=== PATIENT | female | born 2000 | race Caucasian/White ===

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

== ENCOUNTER 2021-08-18 06:31 | Emergency (ER) | payer MEDICAID, SELFPAY ==
[2021-08-18 06:36] VITALS: BP 133/77; PULSE 110; RESP 20; TEMP 36.4; O2SAT 96
--- NOTE | 2021-08-18 06:47 | ED.GENADUL_ITS ---
Discharge Plan Disposition Patient Disposition: HOME Condition: Stable Discharge Details Clinical Impression: Urticaria Primary Care Provider: Corby Aguilera ED Provider: Suhas Burnett Home Meds and New Rx's Prescriptions: New prednisone 20 mg tablet 60 mg PO DAILY 5 Days Qty: 15 RF: 0 Continued Pulmicort Flexhaler 180 mcg/actuation aerosol powdr breath activated 2 inh Inhalation BID Qty: 1 RF: 2 lamotrigine 150 MG tablet 150 mg PO BID RF: 0 (DME) Space Chamber Plus 1 EACH spacer 1 ea Miscellaneous Q4H PRN Qty: 1 RF: 0 Nexplanon 68 MG implant 68 mg SQ ONCE Qty: 1 RF: 0 albuterol sulfate [ProAir HFA] 90 mcg/actuation HFA aerosol inhaler 2 puff Inhalation Q4H PRN Qty: 2 RF: 3 ipratropium-albuterol 0.5 mg-3 mg(2.5 mg base)/3 mL solution for nebulization 3 ml IH Q6H Qty: 90 RF: 0 No Action quetiapine [Seroquel] 100 mg Tablet 100 mg PO DAILY RF: 0 Discharge Instructions Instructions: Urticaria (ED) Additional Instructions: you can take 25-50mg benadryl every 6 hours as needed for itching, it may make you drowsy follow up with your primary care provider within 1 week if symptoms are not improving return to the emergency department if you feel more ill, have difficulty breathing, fevers or difficulty swallowing liquids Medical Decision Making 21 yo female comes in with a month of intermittent itching rash. She states it was primarily on her legs then moved to the torso and back and now is on the arms. Went to urgent care yesterday but the medicine (reportedly prednisone) was sent to her pharmacy which is a mail delivery pharmacy so she has not had the meds yet. Was not able to sleep due to itching so came here, has not taken benadryl. She denies fevers, dyspnea, gi symptoms, or difficulty swallowing. No new meds or known exposures to new chemicals. She has various sized mildly raised mildly erythematous patches that keiko, are not warm to touch and not tender on her arms, back and chest. No mucous membrane lesions. Presentation consistent with urticaria, no findings to suggest anaphylaxis and no findings to suggest sjs/ten and no symptoms to suggest infectious etiology. Will have her start prn benadryl and daily prednisone, advised to f/u with pcp and return prec autions given Differential Diagnosis Differential Diagnosis: urticaria, dermatitis HPI General Mode of arrival: ambulatory . Date/Time Provider Initiated Documentation: 08/18/21 06:32 . Limitations to Documentation: no limitations . Information obtained by: patient . History of Present Illness 21 year old F presents to the emergency department with the chief complaint of rash, described as moderate, Patient reports no radiation. Patient started experiencing this month(s) (1) and it has been constant. No relieving factors improve symptom(s), No exacerbating factors reported . Patient notes no other symptoms.. Patient did receive the following treatments prior to arrival, none Related Data Home Medications Medication Instructions Recorded Confirmed lamotrigine 150 mg PO BID tab-cap 01/30/16 08/18/21 Space Chamber Plus #1 08/06/16 08/18/21 Nexplanon 68 mg SQ ONCE #1 implant 12/30/17 08/18/21 ipratropium-albuterol 3 ml IH Q6H #90 ml 10/07/18 08/18/21 albuterol sulfate 90 mcg/actuation 2 puff INHALATION Q4H PRN #2 09/27/19 08/18/21 aerosol inhaler inhaler budesonide 180 mcg/actuation 2 inh INHALATION BID #1 each 04/15/20 08/18/21 breath activated powder inhaler prednisone 60 mg PO DAILY 5 Days #15 tab 08/18/21 quetiapine [Seroquel] 100 mg PO DAILY 08/18/21 08/18/21 Previous Rx's Medication Instructions Recorded ipratropium-albuterol 3 ml IH Q6H #90 ml 10/07/18 albuterol sulfate 90 mcg/actuation 2 puff INHALATION Q4H PRN #2 09/27/19 aerosol inhaler inhaler budesonide 180 mcg/actuation 2 inh INHALATION BID #1 each 04/15/20 breath activated powder inhaler prednisone 60 mg PO DAILY 5 Days #15 tab 08/18/21 Allergies Allergy/AdvReac Type Severity Reaction Status Date / Time lurasidone [From Latuda] AdvReac Nausea Unverified 08/18/21 06:47 General Stated Complaint: RashLesion DAISY: 4 Review of Systems All systems reviewed & are unremarkable except as noted in HPI and below Constitutional Constitutional: Denies chills, Denies fever(s) and Denies weakness Cardiovascular Cardiovascular: Denies chest pain and Denies dyspnea Respiratory Respiratory: Denies cough and Denies dyspnea Gastrointestinal Gastrointestinal: Denies abdominal pain, Denies nausea and Denies vomiting Musculoskeletal Musculoskeletal: Denies joint swelling Neurologic Neurologic: Denies weakness PFSH All Active Problems (Updated 08/18/21 @ 06:48 by Suhas Burnett MD) Urticaria (Acute) Presence of subdermal contraceptive implant (Acute 12/31/20) PTSD (post-traumatic stress disorder) (Chronic) Depression (Chronic) Reactive attachment disorder of childhood (Chronic) Anxiety (Acute 03/24/15) PTSD mood disorder followed by Freda Garza Attention deficit hyperactivity disorder, combined type (Acute 12/20/12) Contraception (Acute 12/22/17) Mild persistent asthma (Acute 07/14/15) exacerbations wiht poor response to oral steroids Pediatric body mass index (BMI) of 85th percentile to less than 95th percentile for age (Acute 07/29/17) Routine child health exam (Acute 07/28/15) Medical History (Updated 08/18/21 @ 06:48 by Suhas Burnett MD) ADHD (attention deficit hyperactivity disorder) Anxiety Asthma Mood disorder PTSD (post-traumatic stress disorder) Wears glasses Surgical History Repair, Dental Caries Tonsillectomy and adenoidectomy Family History Mother Mental disorder Father Medical history unknown Social History (Updated 04/15/20 @ 13:07 by Candelaria Chavira RN) Smoking/Tobacco Use Status: Never Smoking risk assessment performed?: Yes Alcohol Intake: never Drug use: Never Substance use type: does not use Household members: caregiver Pets and animals: Yes Pets and animals: dog(s) Do you feel safe at home: Yes Do you feel safe in your relationship?: Yes Exam Const General: no acute distress Orientation: alert HENMT Head: normal to inspection Ears: external ears normal General nose exam: external nose normal Mouth: moist mucous membranes Eyes General: appearance normal, both eyes and all related structures Neck Neck: normal visual inspection Resp Effort & Inspection: normal respiratory effort and able to speak in complete sentences Cardio Rate: regular rate Skin General skin exam: elasticity normal Neuro General: patient alert and patient oriented x3 Extrem General: normal to inspection Psych Mental Status: mental status grossly normal Course Vital Signs Vital signs: Vital Signs Temperature 36.4 C L 08/18/21 06:36 Pulse 110 H 08/18/21 06:36 Respiratory Rate 20 08/18/21 06:36 Blood Pressure 133/77 08/18/21 06:36 Pulse Oximetry 96 08/18/21 06:36 Temperature 36.4 C L 08/18/21 06:36 Temperature Source Skin 08/18/21 06:36 Pulse 110 H 08/18/21 06:36 Respiratory Rate 20 08/18/21 06:36 Respiratory Effort 08/18/21 06:40 Blood Pressure 133/77 08/18/21 06:36 Blood Pressure Position Sitting 08/18/21 06:36 Pulse Oximetry 96 08/18/21 06:36 Oxygen Delivery Method Room Air 08/18/21 06:36 Oxygen Flow Rate 0 08/18/21 06:36 Pain Level 9 08/18/21 06:36
[2021-08-18] MEDS: predniSONE 20 MG TAB 60 MG PO (06:51)
== END 2021-08-18 06:57 | disposition home or self-care (01) ==
PROVIDERS: Emergency Provider Emergency Medicine; PCP Pediatrics
DX: L50.9 Urticaria, unspecified (principal)
CPT/HCPCS: 99283; J7512

== ENCOUNTER 2022-01-09 21:26 | Emergency (ER) | payer MEDICAID, SELFPAY ==
[2022-01-09 21:30] VITALS: BP 155/81; PULSE 102; RESP 18; TEMP 36.9; O2SAT 98
--- NOTE | 2022-01-09 22:16 | ED.GENADUL_ITS ---
Discharge Plan Disposition Patient Disposition: HOME Condition: Stable Discharge Details Clinical Impression: Anxiety Primary Care Provider: None,None ED Provider: Ashley Crowley Home Meds and New Rx's Prescriptions: Continued lamotrigine 150 MG tablet 150 mg PO BID albuterol sulfate [ProAir HFA] 90 mcg/actuation HFA aerosol inhaler 2 puff Inhalation Q4H PRN Qty: 2 3RF Rx Instructions: 2 puffs with spacer every 4hr as needed for cough/wheeze. 1 for school, 1 for home quetiapine [Seroquel] 100 mg Tablet 100 mg PO DAILY No Action Pulmicort Flexhaler 180 mcg/actuation aerosol powdr breath activated 2 inh Inhalation BID Qty: 1 2RF Rx Instructions: 2 PUFFS twice a day (DME) Space Chamber Plus 1 EACH spacer 1 ea Miscellaneous Q4H PRN Qty: 1 Rx Instructions: use with inhaler as directed Nexplanon 68 MG implant 68 mg SQ ONCE Qty: 1 ipratropium-albuterol 0.5 mg-3 mg(2.5 mg base)/3 mL solution for nebulization 3 ml IH Q6H Qty: 90 0RF Discharge Instructions Instructions: Anxiety (ED) Additional Instructions: You were given a clonazepam for anxiety here in the department. Follow up with primary care provider in 3-5 days. Return to ED sooner if any worsening or concerns. Increase oral fluids. Please return to the ER for any thoughts of harming yourself or others. Please take your normal medications as directed. Medical Decision Making At this time due to no suicidality no homicidality no thoughts of harming herself or others there is no emergent psychiatric reason to consult with mental health. We will give a clonazepam and discharge home. Patient does not appear to be under the influence does not have any physical complaints. Medical Records Medical records reviewed: Yes I reviewed the patient's medical records. HPI General Mode of arrival: ambulatory . Date/Time Provider Initiated Documentation: 01/09/22 21:36 . Limitations to Documentation: no limitations . Information obtained by: patient, RN notes reviewed and old records reviewed . HPI Narrative: 21-year-old female presents to the ER with a chief complaint of anxiety after getting into a verbal argument with her parents. Patient was brought in by police. Patient denies any suicidal ideation or homicidal ideation or any other complaints. She does have a past medical history of PTSD mood disorder anxiety asthma ADHD. She denies doing anything to hurt herself. She denies any physical complaints no nausea vomiting diarrhea. She does take Seroquel at bedtime which she did not take. Upon entering room patient has a blanket over her head. She does not appear to be under the influence of any medications or alcohol. Related Data Home Medications Medication Instructions Recorded Confirmed lamotrigine 150 mg tablet 150 mg PO BID 01/30/16 08/18/21 inhalational spacing device (Space ##1 08/06/16 08/18/21 Chamber Plus) etonogestrel 68 mg subdermal 68 mg SQ ONCE #1 implant 12/30/17 01/09/22 implant (Nexplanon) ipratropium 0.5 mg-albuterol 3 mg 3 ml inhalation Q6H #90 mL 10/07/18 01/09/22 (2.5 mg base)/3 mL nebulization soln albuterol sulfate 90 mcg/actuation 2 puff inhalation Q4H PRN ##2 09/27/19 01/09/22 aerosol inhaler (ProAir HFA) budesonide 180 mcg/actuation 2 inh inhalation BID #1 ea 04/15/20 01/09/22 breath activated powder inhaler (Pulmicort Flexhaler) quetiapine 100 mg tablet (Seroquel) 100 mg PO DAILY 08/18/21 01/09/22 Previous Rx's Medication Instructions Recorded ipratropium 0.5 mg-albuterol 3 mg 3 ml inhalation Q6H #90 mL 10/07/18 (2.5 mg base)/3 mL nebulization soln albuterol sulfate 90 mcg/actuation 2 puff inhalation Q4H PRN ##2 09/27/19 aerosol inhaler (ProAir HFA) budesonide 180 mcg/actuation 2 inh inhalation BID #1 ea 04/15/20 breath activated powder inhaler (Pulmicort Flexhaler) Allergies Allergy/AdvReac Type Severity Reaction Status Date / Time lurasidone [From Latuda] AdvReac Nausea Unverified 01/09/22 21:33 General Stated Complaint: Anxiety DAISY: 5 Review of Systems All systems reviewed & are unremarkable except as noted in HPI and below Psychiatric Psychiatric: Reports anxiety, Denies homicidal ideation and Denies suicidal ideation PFSH All Active Problems (Updated 01/09/22 @ 22:24 by Ashley Crowley NP) Presence of subdermal contraceptive implant (Acute 12/31/20) PTSD (post-traumatic stress disorder) (Chronic) Depression (Chronic) Reactive attachment disorder of childhood (Chronic) Anxiety (Acute 03/24/15) PTSD mood disorder followed by Freda Garza Attention deficit hyperactivity disorder, combined type (Acute 12/20/12) Contraception (Acute 12/22/17) Mild persistent asthma (Acute 07/14/15) exacerbations wiht poor response to oral steroids Pediatric body mass index (BMI) of 85th percentile to less than 95th percentile for age (Acute 07/29/17) Routine child health exam (Acute 07/28/15) Medical History ADHD (attention deficit hyperactivity disorder) Anxiety Asthma Mood disorder PTSD (post-traumatic stress disorder) Wears glasses Surgical History Repair, Dental Caries Tonsillectomy and adenoidectomy Family History Mother Mental disorder Father Medical history unknown Social History Smoking/Tobacco Use Status: Never Smoking risk assessment performed?: Yes Alcohol Intake: never Drug use: Never Substance use type: does not use Household members: caregiver Pets and animals: Yes Pets and animals: dog(s) Do you feel safe at home: Yes Do you feel safe in your relationship?: Yes Exam Narrative Exam Narrative: Constitutional: Alert and oriented x3. Appears stated age. Normal body habitus. Head: Normocephalic, no trauma. Eyes: Pupils PERRL, Red reflex noted, EOM's intact. Eyelids symmetrical without lesions, discharge, or swelling. ENT: Bilateral TM's WNL, External ear normal to inspection, no mastoid TTP, swelling, or erythema, Nasal turbinates WNL, no nasal discharge. Normal dentition, Posterior pharynx WNL, no exudate. Chest: RRR, Normal S1, S2, distal pulses intact. Resp: Lungs clear to auscultation bilaterally, no wheezes, rales, or rhonchi. Abdomen: Soft, non-distended, Normoactive bowel sounds all 4 quads. Musculoskeletal: Normal gait, 5/5 strength to all four extremities. Skin: No suspicious rashes or lesions. Capillary refill less than 2 sec. Neurologic: Cranial nerves II-XII intact. Alert and oriented x 3. Motor: No deficits noted. Sensory: Intact bilaterally all 4 extremities. Hematologic/Lymphatic: No ecchymosis, no lymphadenopathy. Psych Appearance: grossly normal Mood: anxious mood Affect: other (Child-like) Attitude: cooperative Thought Content: no hallucinations, no homicidality, no obsessions and suicidality Course Vital Signs Vital signs: Vital Signs Temperature 36.9 C 01/09/22 21:30 Pulse 102 H 01/09/22 21:30 Respiratory Rate 18 01/09/22 21:30 Blood Pressure 155/81 H 01/09/22 21:30 Pulse Oximetry 98 01/09/22 21:30 Temperature 36.9 C 01/09/22 21:30 Temperature Source Skin 01/09/22 21:30 Pulse 102 H 01/09/22 21:30 Respiratory Rate 18 01/09/22 21:30 Respiratory Effort Non-Labored 01/09/22 21:34 Respiratory Depth Normal 01/09/22 21:34 Respiratory Pattern Normal 01/09/22 21:34 Blood Pressure 155/81 H 01/09/22 21:30 Pulse Oximetry 98 01/09/22 21:30 Pain Level 0 01/09/22 21:30
[2022-01-09] MEDS: clonazePAM 0.5 MG TAB PO (22:39)
== END 2022-01-09 22:39 | disposition home or self-care (01) ==
PROVIDERS: Emergency Provider Registered Nurse Emergency
DX: F41.9 Anxiety disorder, unspecified (principal)
CPT/HCPCS: 99283; 99284

== ENCOUNTER 2022-04-16 21:49 | Emergency (ER) | payer MEDICAID, SELFPAY ==
--- NOTE | 2022-04-16 21:55 | W.ED.GENAD ---
Discharge Plan Disposition Patient Disposition: HOME Condition: Improving Discharge Details Clinical Impression: Accidental cannabis overdose Primary Care Provider: Unknown,Unknown ED Provider: Alexa Sharma Home Meds and New Rx's Prescriptions: Continued Pulmicort Flexhaler 180 mcg/actuation aerosol powdr breath activated 2 inh Inhalation BID Qty: 1 2RF Rx Instructions: 2 PUFFS twice a day lamotrigine 150 MG tablet 150 mg PO BID (DME) Space Chamber Plus 1 EACH spacer 1 ea Miscellaneous Q4H PRN Qty: 1 Rx Instructions: use with inhaler as directed Nexplanon 68 MG implant 68 mg SQ ONCE Qty: 1 albuterol sulfate [ProAir HFA] 90 mcg/actuation HFA aerosol inhaler 2 puff Inhalation Q4H PRN Qty: 2 3RF Rx Instructions: 2 puffs with spacer every 4hr as needed for cough/wheeze. 1 for school, 1 for home ipratropium-albuterol 0.5 mg-3 mg(2.5 mg base)/3 mL solution for nebulization 3 ml IH Q6H Qty: 90 0RF quetiapine [Seroquel] 100 mg Tablet 100 mg PO DAILY Discharge Instructions Instructions: Cannabis Abuse (ED) Additional Instructions: Drink plenty of fluids and get plenty of rest. Follow-up with your primary care doctor in 1 week as needed. Return to the emergency department with any worsening or new concerning symptoms. Discharge Data Discharge Physician: Alexa Sharma Medical Decision Making <Blanco Womack MD - Last Filed: 04/16/22 23:22> 22-year-old female brought in by EMS for evaluation of anxiety in the setting of taking marijuana edibles earlier this evening. Slightly anxious on examination denying any definitive complaints did have some nausea earlier. Likely reaction to ingestion of cannabis. Low suspicion for metabolic derangement infectious etiology trauma or other serious pathology. Will provide anxiolysis antiemetics fluids and rest close reassessment likely home with close follow-up. 23: 22 resting more comfortably after meds. No further vomiting. <Alexa Sharma DO - Last Filed: 04/17/22 01:26> Dr. Womack 22-year-old female brought in by EMS for evaluation of anxiety in the setting of taking marijuana edibles earlier this evening. Slightly anxious on examination denying any definitive complaints did have some nausea earlier. Likely reaction to ingestion of cannabis. Low suspicion for metabolic derangement infectious etiology trauma or other serious pathology. Will provide anxiolysis antiemetics fluids and rest close reassessment likely home with close follow-up. 23: 22 resting more comfortably after meds. No further vomiting. Dr. Sharma [id number] --please see Dr. Womack's note for initial presentation, exam and plan. Case endorsed with plan to discharge once more sober and able to ambulate. Patient states we can call her girlfriend's grandfather for a ride home. Called girlfriend's grandfather Bill and message left to call the ED. [phone] -- Girlfriend's grandfather here to knot picker cloth pt and her girlfriend. Pt felt comfortable going home. She was ambulatory and felt better and wanted to go home to go to sleep. Vitals entered into chart after discharge and note that pt was tachycardic. She was ambulatory and demonstrated no signs of respiratory distress. Advised to follow up with the primary care doctor for re-evaluation. Usual and customary return precautions given prior to discharge. Medical Records Medical records reviewed: Yes I reviewed the patient's medical records. HPI <Blanco Womakc MD - Last Filed: 04/16/22 23:22> General Date/Time Provider Initiated Documentation: 04/16/22 21:52. HPI Narrative: 22-year-old female brought in by EMS for evaluation after consuming marijuana edibles. Experience anxiety and some nausea Related Data Home Medications Medication Instructions Recorded Confirmed lamotrigine 150 mg tablet 150 mg PO BID 01/30/16 08/18/21 inhalational spacing device (Space ##1 08/06/16 08/18/21 Chamber Plus) etonogestrel 68 mg subdermal 68 mg SQ ONCE #1 implant 12/30/17 01/09/22 implant (Nexplanon) ipratropium 0.5 mg-albuterol 3 mg 3 ml inhalation Q6H #90 mL 10/07/18 01/09/22 (2.5 mg base)/3 mL nebulization soln albuterol sulfate 90 mcg/actuation 2 puff inhalation Q4H PRN ##2 09/27/19 01/09/22 aerosol inhaler (ProAir HFA) budesonide 180 mcg/actuation 2 inh inhalation BID #1 ea 04/15/20 01/09/22 breath activated powder inhaler (Pulmicort Flexhaler) quetiapine 100 mg tablet (Seroquel) 100 mg PO DAILY 08/18/21 01/09/22 Previous Rx's Medication Instructions Recorded ipratropium 0.5 mg-albuterol 3 mg 3 ml inhalation Q6H #90 mL 10/07/18 (2.5 mg base)/3 mL nebulization soln albuterol sulfate 90 mcg/actuation 2 puff inhalation Q4H PRN ##2 09/27/19 aerosol inhaler (ProAir HFA) budesonide 180 mcg/actuation 2 inh inhalation BID #1 ea 04/15/20 breath activated powder inhaler (Pulmicort Flexhaler) Allergies Allergy/AdvReac Type Severity Reaction Status Date / Time lurasidone [From Latuda] AdvReac Nausea Unverified 01/09/22 21:33 General DAISY: 5 Review of Systems <Blanco Womack MD - Last Filed: 04/16/22 23:22> Narrative: Review of Systems Constitutional: negative Eyes: negative ENT: negative Cardiovascular: negative Respiratory: negative Gastrointestinal: negative : negative Musculoskeletal: negative Skin: negative Neurologic: negative Psych: anxiety PFSH <Blanco Womack MD - Last Filed: 04/16/22 23:22> All Active Problems (Updated 04/16/22 @ 23:22 by Blanco Womack MD) Accidental cannabis overdose (Acute) Presence of subdermal contraceptive implant (Acute 12/31/20) PTSD (post-traumatic stress disorder) (Chronic) Depression (Chronic) Reactive attachment disorder of childhood (Chronic) Anxiety (Acute 03/24/15) PTSD mood disorder followed by Freda Garza Attention deficit hyperactivity disorder, combined type (Acute 12/20/12) Contraception (Acute 12/22/17) Mild persistent asthma (Acute 07/14/15) exacerbations wiht poor response to oral steroids Pediatric body mass index (BMI) of 85th percentile to less than 95th percentile for age (Acute 07/29/17) Routine child health exam (Acute 07/28/15) Medical History ADHD (attention deficit hyperactivity disorder) Anxiety Asthma Mood disorder PTSD (post-traumatic stress disorder) Wears glasses Surgical History Repair, Dental Caries Tonsillectomy and adenoidectomy Family History Mother Mental disorder Father Medical history unknown Social History Smoking/Tobacco Use Status: Never Smoking risk assessment performed?: Yes Alcohol Intake: never Drug use: Rarely Substance use type: marijuana Details: Patient ate some THC gummies, unknown amount. States today was the first time. Household members: caregiver Pets and animals: Yes Pets and animals: dog(s) Do you feel safe at home: Yes Do you feel safe in your relationship?: Yes Exam <Blanco Womack MD - Last Filed: 04/16/22 23:22> Narrative Exam Narrative: Physical Examination General: alert, awake, cooperative, resting comfortably, no acute distress HEENT: normocephalic, atraumatic; PERRL, EOM intact, conjunctiva normal; no nasal discharge; moist mucous membranes, oral and pharyngeal mucosa normal, tolerating secretions Neck: supple, trachea midline; full ROM Chest: normal to inspection Respiratory: normal respiratory effort, speaking in full sentences, clear to auscultation, no wheezing, rales or rhonchi Cardiac: regular rate, regular rhythm, S1S2 intact, no murmurs rubs or gallops GI: abdomen soft, non-tender, non-distended; no palpable mass or hepatosplenomegaly Skin: no lesions, rashes or trauma appreciated Neuro: AAOx3, normal speech, moving all extremities Psych: Anxiety Sign Out <Blanco Womack MD - Last Filed: 04/16/22 23:22> Sign Out Data: Sign Out Comment: marijuana edibles, nausea vomiting anxiety; pending improvement of symptoms for dc home Last updated by Blanco Womack MD at 04/16/22 23:05
[2022-04-16 22:00] VITALS: BP 137/68; PULSE 125; RESP 18; TEMP 36.6; O2SAT 100
[2022-04-17 01:19] VITALS: BP 124/74; PULSE 129; RESP 18; O2SAT 97
== END 2022-04-17 00:37 | disposition home or self-care (01) ==
PROVIDERS: Emergency Provider Physician Assistant
DX: T40.711A Poisoning by cannabis, accidental (unintentional), initial encounter (principal); F41.9 Anxiety disorder, unspecified; R11.2 Nausea with vomiting, unspecified
CPT/HCPCS: 96361; 96372; 96374; 96375; 99284; 99282

== ENCOUNTER 2023-02-23 15:29 | Emergency (ER) | payer MEDICAID, SELFPAY ==
[2023-02-23 15:34] VITALS: BP 131/68; PULSE 91; RESP 16; TEMP 36.7; O2SAT 100
--- NOTE | 2023-02-23 16:30 | DI.RAD_ITS ---
Exam(s) XR KNEE LT 3V AP,LAT,MARILOU EXAM: XR KNEE LT 3V AP,LAT,MARILOU CLINICAL HISTORY: trauma. TECHNIQUE: 2D digital imaging was performed. COMPARISON: No exams were available for comparison FINDINGS: 3 views No evidence of fracture nor joint effusion. No joint space narrowing. Bone density normal. No osse ous lesions. IMPRESSION: No significant osseous findings in the knee. No joint effusion evident. DATA REPOSITORY: RADIATION DOSE DELIVERED:
--- NOTE | 2023-02-23 16:30 | DI.RAD_ITS ---
Exam(s) XR FOOT LT COMPLETE EXAM: XR FOOT LT COMPLETE CLINICAL HISTORY: Trauma. TECHNIQUE: 2D digital imaging was performed. COMPARISON: No exams were available for comparison FINDINGS: 3 views No evidence of fracture or diastasis of the Lisfranc joint. Bone density normal. No osseous lesions . No radiopaque foreign body. No degenerative changes. IMPRESSION: No significant osseous findings in the foot. DATA REPOSITORY: RADIATION DOSE DELIVERED:
--- NOTE | 2023-02-23 16:30 | DI.RAD_ITS ---
Exam(s) XR ANKLE LT COMPLETE EXAM: XR ANKLE LT COMPLETE CLINICAL HISTORY: Trauma. TECHNIQUE: 2D digital imaging was performed. COMPARISON: No exams were available for comparison FINDINGS: 3 views There is no evidence of acute fracture or widening of the ankle mortise. The talar dome appears unre markable. Bone density normal. No osseous lesions. No evidence of osseous tarsal coalition. IMPRESSION: No significant osseous findings in the ankle. DATA REPOSITORY: RADIATION DOSE DELIVERED:
--- NOTE | 2023-02-23 16:39 | ED.GENADUL_ITS ---
Discharge Plan Disposition Patient Disposition: Home Discharge Details Chief Complaint: Orthopedic Clinical Impression: Abrasion, left knee, initial encounter, Fall from other slipping, tripping, or stumbling, Left ankle sprain, Sprain of foot, left, Contusion of knee, left Primary Care Provider: Unknown,Unknown ED Provider: Mara Beauchamp Home Meds and New Rx's Prescriptions: No Action Pulmicort Flexhaler 180 mcg/actuation aerosol powdr breath activated 2 inh Inhalation BID Qty: 1 2RF Rx Instructions: 2 PUFFS twice a day lamotrigine 150 MG tablet 150 mg PO BID Patient Comments: no longer taking 02/23/23 (DME) Space Chamber Plus 1 EACH spacer 1 ea Miscellaneous Q4H PRN Qty: 1 Rx Instructions: use with inhaler as directed Nexplanon 68 MG implant 68 mg SQ ONCE Qty: 1 albuterol sulfate [ProAir HFA] 90 mcg/actuation HFA aerosol inhaler 2 puff Inhalation Q4H PRN Qty: 2 3RF Rx Instructions: 2 puffs with spacer every 4hr as needed for cough/wheeze. 1 for school, 1 for home ipratropium-albuterol 0.5 mg-3 mg(2.5 mg base)/3 mL solution for nebulization 3 ml IH Q6H Qty: 90 0RF quetiapine [Seroquel] 100 mg Tablet 100 mg PO DAILY Discharge Instructions Instructions: Ankle Sprain (ED), Crutch Instructions (ED), Contusion in Adults (ED), Foot Sprain (ED), Abrasion (ED) Additional Instructions: 1. Use the crutches and Eder wrap but gradually increase ambulation and flex and extend your knee and ankle to prevent stiffening. 2. Alternate 1000 mg of acetaminophen every 3 hours with 400 to 600 mg of ibuprofen as needed for pain. 3. Wash your knee with mild soap and water such as Dove or Ivory or half- strength hydrogen peroxide diluted with tap water. 4. You should receive a call from the orthopedist arranging a follow-up appointment to recheck your knee ankle and foot. 5. Return here for any new or worrisome symptoms such as signs of infection such as redness, pus, pain, fever, red streaking or any concerns. Medical Decision Making This is a 23-year-old female with a history of PTSD who tripped while playing basketball 4 days ago sustaining an abrasion to the left knee and injuring her left knee ankle and foot. She was concerned about an infection of the abrasion but she has cleaned it off with hydrogen peroxide and there is no evidence of cellulitis lymphangitis or retained foreign body. She does have pain with flexion and extension but there is no laxity in the knee. The entire left ankle and foot are tender but again with minimal physical findings. No laxity no deformities. My plan is to obtain plain films of the left knee ankle and foot which I anticipate will be negative. If so we will give her an Eder wrap and crutches and advised her to follow-up with orthopedics. I have already advised her about the signs and symptoms of wound infection including fever, red streaking purulent discharge or inguinal adenopathy. Differential Diagnosis Differential Diagnosis: Contusion, fracture, abrasion Medical Records Medical records reviewed: Yes I reviewed the patient's medical records. Imaging Data Radiologic Study: Imaging: X-Ray (Left foot) Radiologist's impression: No significant osseous findings in the foot. Radiologic Study #2: Imaging: X-Ray (Left ankle) Radiologist's impression: No significant osseous findings in the ankle. Radiologic Study #3: Imaging: X-Ray (Left knee) Radiologist's impression: No evidence of fracture nor joint effusion. No joint space narrowing. Bony density normal no osseous lesions impression: No significant osseous findings in the knee. No joint effusion evident. HPI General Date/Time Provider Initiated Documentation: 02/23/23 15:39 . Limitations to Documentation: no limitations . Information obtained by: patient and old records reviewed . History of Present Illness described as severe, Quality is described as sharp, HPI Narrative: Time seen was 1616 in bed 11. 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 She presents today after a fall on February 18. The patient states she was playing basketball and tripped falling and injuring her left knee left ankle and left foot. She sustained an abrasion to her left knee which she said had some yellowish discharge, which she cleaned up with hydrogen peroxide. She states that it looks a lot better. She is also complaining of left knee pain, left ankle and left foot pain. She said she is unable to fully extend her knee or completely dorsi or plantar flex her left foot. She denies any previous similar injury. She states she has intermittent numbness and tingling of the entire left leg. She denies hitting her head or loss of consciousness. She said she tried taking acetaminophen without any relief. She denies any chance of . Related Data Home Medications Medication Instructions Recorded Confirmed lamotrigine 150 mg tablet 150 mg PO BID 01/30/16 08/18/21 inhalational spacing device (Space ##1 08/06/16 08/18/21 Chamber Plus) etonogestrel 68 mg subdermal 68 mg SQ ONCE #1 implant 12/30/17 02/23/23 implant (Nexplanon) ipratropium 0.5 mg-albuterol 3 mg 3 ml inhalation Q6H #90 mL 10/07/18 02/23/23 (2.5 mg base)/3 mL nebulization soln albuterol sulfate 90 mcg/actuation 2 puff inhalation Q4H PRN ##2 09/27/19 02/23/23 aerosol inhaler (ProAir HFA) budesonide 180 mcg/actuation 2 inh inhalation BID #1 ea 04/15/20 02/23/23 breath activated powder inhaler (Pulmicort Flexhaler) quetiapine 100 mg tablet (Seroquel) 100 mg PO DAILY 08/18/21 02/23/23 Previous Rx's Medication Instructions Recorded ipratropium 0.5 mg-albuterol 3 mg 3 ml inhalation Q6H #90 mL 10/07/18 (2.5 mg base)/3 mL nebulization soln albuterol sulfate 90 mcg/actuation 2 puff inhalation Q4H PRN ##2 09/27/19 aerosol inhaler (ProAir HFA) budesonide 180 mcg/actuation 2 inh inhalation BID #1 ea 04/15/20 breath activated powder inhaler (Pulmicort Flexhaler) Allergies Allergy/AdvReac Type Severity Reaction Status Date / Time lurasidone [From Latuda] AdvReac Nausea Unverified 02/23/23 15:36 General Stated Complaint: Orthopedic DAISY: 4 Review of Systems Constitutional Constitutional: Denies chills, Denies fever(s) and Denies headache(s) Comments: No neck pain Eyes Eyes: Denies blurry vision ENT Ears, Nose, Mouth, and Throat: Denies headache(s) and Denies neck pain Cardiovascular Cardiovascular: Denies lightheadedness Musculoskeletal Musculoskeletal: Denies neck pain Comments: As above. Intermittent numbness and tingling associated with inability Integumentary/Breasts Comments: Abrasion to the left knee. No swollen lymph nodes in the groin. Neurologic Neurologic: Denies headache(s) PFSH All Active Problems Abrasion, left knee, initial encounter (Acute) Fall from other slipping, tripping, or stumbling (Acute) Left ankle sprain (Acute) Sprain of foot, left (Acute) Contusion of knee, left (Acute) Presence of subdermal contraceptive implant (Acute 12/31/20) PTSD (post-traumatic stress disorder) (Chronic) Depression (Chronic) Reactive attachment disorder of childhood (Chronic) Anxiety (Acute 03/24/15) PTSD mood disorder followed by Freda Garza Attention deficit hyperactivity disorder, combined type (Acute 12/20/12) Contraception (Acute 12/22/17) Mild persistent asthma (Acute 07/14/15) exacerbations wiht poor response to oral steroids Pediatric body mass index (BMI) of 85th percentile to less than 95th percentile for age (Acute 07/29/17) Routine child health exam (Acute 07/28/15) Medical History ADHD (attention deficit hyperactivity disorder) Anxiety Asthma Mood disorder PTSD (post-traumatic stress disorder) Wears glasses Surgical History Repair, Dental Caries Tonsillectomy and adenoidectomy Family History Mother Mental disorder Father Medical history unknown Social History Smoking/Tobacco Use Status: Never Smoking risk assessment performed?: Yes Alcohol Intake: never Drug use: Rarely Substance use type: marijuana Details: Patient ate some THC gummies, unknown amount. States today was the first time. Household members: caregiver Pets and animals: Yes (3 cats, 3 dogs; at mom's 3 dogs) Pets and animals: dog(s) Do you feel safe at home: Yes Do you feel safe in your relationship?: Yes Exam Narrative Exam Narrative: The patient is well-developed well-nourished female alert and oriented in no acute distress. Const General: cooperative, healthy appearing, comfortable, no acute distress, well developed, well groomed and well hydrated Nutritional Appearance: average body habitus and well nourished Orientation: alert, awake and oriented x3 HENMT Head: normal to inspection, normocephalic and atraumatic Ears: hearing grossly normal bilaterally and external ears normal General nose exam: external nose normal, nares normal and no nasal discharge Face and sinus: normal facial exam, sinuses nontender and face symmetric Mouth: oral mucosae normal, lip normal, tongue normal, oropharynx normal, moist mucous membranes and other (Normal phonation. The patient is handling secretions.) Throat: posterior oropharynx normal and uvula midline Eyes General: appearance normal, both eyes and all related structures Eyelids: eyelids normal Conjunctivae: conjunctivae normal Sclera: sclerae normal Cornea: corneas normal Pupils: PERRL EOM: EOM intact bilaterally and No nystagmus Neck Neck: normal visual inspection, full ROM, no lymphadenopathy, no meningeal signs, trachea midline and supple Lymphatic: no lymphadenopathy noted Resp Effort & Inspection: normal respiratory effort, able to speak in complete sentences, no audible wheezes, no nasal flaring, no respiratory distress, no retractions, no stridor, not tachypneic, no tracheal deviation, no use of accessory muscles, No prolonged expiratory phase and other (Normal inspiratory to expiratory ratio.) Auscultation: clear to auscultation bilaterally, no rales, no rhonchi, no wheezes and no rubs Tactile Fremitus: tactile fremitus absent Cardio Jugular venous pressure: no JVD Palpation: normal PMI Rate: regular rate Rhythm: regular rhythm Heart Sounds: S1 normal, S2 normal, no gallops, no murmurs and no rubs GI Inspection: normal to inspection and non-distended Palpation: soft, no hepatosplenomegaly, no guarding and nontender Percussion: normal to percussion Auscultation: normal bowel sounds General: No CVA tenderness Back/Spine/Pelvis Back: no CVA tenderness and No back tenderness Cervical Spine: normal cervical lordosis, cervical ROM normal, No cervical muscular tenderness, No pain with cervical ROM, No cervical spinal tenderness and No step off deformity Thoracic/Lumbar Spine: thoracic and lumbar spine normal to inspection, No thoracic spinal tenderness and No lumbar spinal tenderness Pelvis: no pain with anterior-posterior compression and no pain with lateral compression Skin Other: Her skin is warm and dry normal for ethnicity. There is a well-healing abrasion over the left patella. No foreign bodies present. There is no lymphangitis single adenopathy or subcutaneous emphysema. No induration or fluctuance Neuro General: patient alert, patient awake, patient oriented x3, moves all extremities, no meningeal signs, no focal motor deficits and CN's II-XI intact bilaterally Cranial Nerves: CN's II-XI intact bilaterally, PERRL, accommodation normal, EOM intact bilaterally, no nystagmus, facial strength normal, tongue midline, hearing normal and no nystagmus Cognition: normal cognition Speech: speech normal Gait: normal gait Motor: muscle tone normal throughout and strength 5/5 throughout Sensory Exam: no sensory deficits noted Extrem Other: The patient has normal-appearing anatomy of the left lower extremity except for the superficial healing abrasion. There is no effusion or deformity. She has slightly limited range of motion secondary to pain. There is no laxity. She complains of pain with full extension. The entire left ankle and foot are also tender. She is neurovascularly intact. There is no anterior draw sign of the left ankle. No ecchymoses swelling or deformity. The remainder of her extremities are unremarkable Psych Appearance: grossly normal Affect: normal affect Attitude: cooperative Thought Process: normal Thought Content: normal Insight: insight good Judgment: judgment good Other: The patient appears to have capacity make medical decisions. Course Vital Signs Vital signs: Vital Signs Temperature 36.7 C 02/23/23 15:34 Pulse 91 H 02/23/23 15:34 Respiratory Rate 16 02/23/23 15:34 Blood Pressure 131/68 02/23/23 15:34 Pulse Oximetry 100 02/23/23 15:34 Temperature 36.7 C 02/23/23 15:34 Temperature Source Skin 02/23/23 15:34 Pulse 91 H 02/23/23 15:34 Respiratory Rate 16 02/23/23 15:34 Blood Pressure 131/68 02/23/23 15:34 Blood Pressure Position Sitting 02/23/23 15:34 Pulse Oximetry 100 02/23/23 15:34 Pain Level 7 02/23/23 15:34
[2023-02-23 18:13] VITALS: BP 121/83; PULSE 96; RESP 18; O2SAT 98
== END 2023-02-23 18:21 | disposition home or self-care (01) ==
PROVIDERS: Emergency Provider Emergency Medicine Emergency Medical Services
DX: S80.02XA Contusion of left knee, initial encounter (principal); S93.402A Sprain of unspecified ligament of left ankle, initial encounter; S93.602A Unspecified sprain of left foot, initial encounter; W01.0XXA Fall on same level from slipping, tripping and stumbling without subsequent striking against object, initial encounter; Y93.67 Activity, basketball; F43.11 Post-traumatic stress disorder, acute
CPT/HCPCS: 73562; 99284; 73610; 73630; 99283

== ENCOUNTER 2023-06-01 15:54 | Outpatient (REF) | payer MEDICAID, SELFPAY | END 2023-06-01 15:55 | disposition home or self-care (01) | LOC: LBN 15:54 | PROVIDERS: Visit Provider Nurse Practitioner Family | DX: N89.9 Noninflammatory disorder of vagina, unspecified (principal); N39.0 Urinary tract infection, site not specified | CPT/HCPCS: 87077; 87086; 87186; 87480; 87510; 87660 ==